=== PATIENT | female | born 1940 | race Caucasian/White ===

== ENCOUNTER → 2021-12-25 08:35 | Outpatient (CLI) | payer MEDICARE, SELFPAY ==
[2021-12-25 10:02] LABS: COVID19 -Nasal RAPID Negative (Negative)
--- NOTE | 2021-12-25 19:07 | DI.NM.S_ITS ---
DATE OF SERVICE: 12/25/2021 PROCEDURE: Pharmaceutical perfusion study. INDICATION: Shortness of breath with underlying hypertension and hyperlipidemia. RADIOPHARMACEUTICAL: 24.2 millicurie technetium-99m Myoview IV was injected at stress and 11.8 millicurie technetium-99m Myoview IV was injected at rest. CARDIAC STRESS: The patient underwent IV Lexiscan perfusion study under the supervision of an attending staff using standard intravenous Lexiscan protocol. Baseline blood pressure was 120/80. The patient remained hemodynamically stable. Baseline rhythm was sinus with left bundle branch block. During stress, no convincing new ischemic changes or new arrhythmias seen. The patient had mild shortness of breath. No aminophylline was required. RAW DATA: Left ventricle is dilated. Significant breast shadow seen. There is increased subdiaphragmatic activity. Hot spot encroaching the inferior border of the heart. GATED STUDY: Resting LV ejection fraction 34 and stress LV ejection fraction 43 percent. Mid to distal anterior wall, apex appears to be hypokinetic. Resting end-diastolic volume 266 mL and stress end-diastolic volume 275 mL, suggestive of significantly dilated left ventricle. TID ratio 1.0, which is within normal limits. MYOCARDIAL PERFUSION SCAN: Please note, that there are no prone images. Stress supine and resting supine images were compared to each other. There is a predominantly fixed moderate-size severely decreased perfusion of mid to distal anterior wall extending into the anteroapex and mid to distal anteroseptum. There is also distal inferior wall and inferoapical defect with hot spot near the apex and inferior border of the heart. Overall, no significant ischemic burden. CONCLUSION: This is an abnormal myocardial perfusion study, consistent with predominantly fixed, moderate-size, severely decreased perfusion of mid to distal anterior wall extending into the anteroapex and mid to distal anteroseptum, as well as distal inferior wall and inferoapical defect. 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 Distal inferior wall, inferoapical defect could be due to tissue attenuation artifact. Some of the anterior wall defect could be due to underlying left bundle branch block and breast tissue attenuation, as we do not have any stress prone images, however, considering significant left ventricular enlargement, wall motion abnormalities, most likely, we are dealing with coronary artery disease. Recommend left heart catheterization and aggressive medical management and risk factors modification. Sissy Zee: [id number] RON/carl/mina doc#: [id number]/job#: [id number] dd: 12/25/2021 16:58:00 dt: 12/25/2021 18:25:00 DICTATING MD/COPIES TO: Vin Jacome MD COPIES MNE: SORAYA;
== END ==
PROVIDERS: Referring Provider Family Medicine; Visit Provider Family Medicine
DX: R06.02 Shortness of breath (principal); R94.39 Abnormal result of other cardiovascular function study; R93.1 Abnormal findings on diagnostic imaging of heart and coronary circulation; I10 Essential (primary) hypertension; E78.5 Hyperlipidemia, unspecified; Z20.822 Contact with and (suspected) exposure to COVID-19
CPT/HCPCS: 78452; 87635; 93017; A9502; J2785